=== PATIENT | female | born 1985 ===

== ENCOUNTER 2021-03-08 13:00 | Inpatient (IN) | payer OTHER ==
[~2021-03-08] VITALS: Ht 165.1 cm; Wt 92.5 kg
[2021-03-30] MEDS ORDERED: PRENATAL TABLE1 EAC1 PO (16:31)
[2021-03-30] MEDS ORDERED: PROPYLTHIOURACI50 MG PO (16:32)
[2021-04-03] MEDS ORDERED: KETO10TA2 PO (11:16)
[2021-04-03] MEDS ORDERED: OXYC1TAB9 PO (11:17)
== END 2021-04-03 13:08 | disposition home or self-care (01) | DRG 788 ==
LOC: LDR 03-30 15:02 → OB/GYN 03-31 18:53 → EDBD 04-01 13:00 → SURH 04-01 13:00 → OB/GYN 04-03 13:08
PROVIDERS: ADMIT Obstetrics & Gynecology; ATTEND Obstetrics & Gynecology
PROC: 3E0P7VZ Introduction of Hormone into Female Reproductive, Via Natural or Artificial Opening (ICD-10-PCS; 2021-03-30)
PROC: 4A1HXFZ Monitoring of Products of Conception, Cardiac Rhythm, External Approach (ICD-10-PCS; 2021-03-30)
PROC: 3E033VJ Introduction of Other Hormone into Peripheral Vein, Percutaneous Approach (ICD-10-PCS; 2021-03-31)
PROC: 10D00Z1 Extraction of Products of Conception, Low, Open Approach (ICD-10-PCS; principal; 2021-03-31 17:30)
DX: O65.8 Obstructed labor due to other maternal pelvic abnormalities (principal); O62.0 Primary inadequate contractions; O61.0 Failed medical induction of labor; Z3A.40 40 weeks gestation of pregnancy; Z37.0 Single live birth